=== PATIENT | male | born 1965 | race Two or more races ===

== ENCOUNTER 2018-02-28 09:09 | Outpatient (CLI) | payer OTHER | END 2018-02-28 09:50 | disposition home or self-care (01) | LOC: SONOGRAMA 09:09 | DX: M25.561 Pain in right knee (principal); M25.461 Effusion, right knee ==

== ENCOUNTER 2018-02-28 10:52 | Outpatient (CLI) | payer OTHER | END 2018-02-28 10:54 | disposition home or self-care (01) | LOC: NUCLEAR 10:52 | DX: I82.491 Acute embolism and thrombosis of other specified deep vein of right lower extremity (principal) ==

== ENCOUNTER 2018-03-06 09:35 | Outpatient (CLI) | payer OTHER | END 2018-03-06 09:51 | disposition home or self-care (01) | LOC: MRI 09:35 | DX: M25.561 Pain in right knee (principal); M71.21 Synovial cyst of popliteal space [Baker], right knee | CPT/HCPCS: 73718 ==

== ENCOUNTER 2020-06-15 10:09 | Outpatient (CLI) | payer OTHER | END 2020-06-15 10:31 | disposition home or self-care (01) | LOC: RAD 10:09 | PROVIDERS: ATTEND Orthopaedic Surgery Orthopaedic Surgery of the Spine | DX: Q67.5 Congenital deformity of spine (principal); M51.16 Intervertebral disc disorders with radiculopathy, lumbar region; M13.852 Other specified arthritis, left hip; M13.851 Other specified arthritis, right hip; M13.862 Other specified arthritis, left knee; M13.861 Other specified arthritis, right knee ==

== ENCOUNTER → 2020-07-13 | Outpatient (CLI) | payer OTHER | END | disposition home or self-care (01) | LOC: MRI 14:54 | PROVIDERS: ATTEND Orthopaedic Surgery Orthopaedic Surgery of the Spine | DX: M48.07 Spinal stenosis, lumbosacral region (principal); M51.16 Intervertebral disc disorders with radiculopathy, lumbar region | CPT/HCPCS: 72148 ==